=== PATIENT | female | born 1945 | race Caucasian/White ===

== ENCOUNTER 2023-02-15 08:10 | Observation (INO) ==
[~2023-02-15 08:10] MED LIST: Buffered Lidocaine 1% SYRIN 1 ml INTRADERM ONE; Lactated Ringers 1000 ml BAG 1,000 ML IV SCH; Ropivacaine 5 MG/ML 20 ML VIAL 0.5% (100 MG) ONE; Tranexamic Acid 1,000 MG/10 ML 1,000 MG in NS 0.9% 50 ML 50 ML IV SCH
[2023-02-15] MEDS ORDERED: ceFAZolin 2 GM in NS PREMIX 2 GM/100 ML BAG IVPB ONE (08:40)
[2023-02-15] MEDS ORDERED: Lidocaine 2% PF 5 ML VIAL ONE (09:48)
[2023-02-15] MEDS ORDERED: Phenylephrine IV 10 MG/ML 1 ml VIAL ONE (09:48)
[2023-02-15] MEDS ORDERED: Midazolam 2 mg/2 ml VIAL 1 mg/ml 2 ml VIAL (2 mg) ONE (09:56)
[2023-02-15] MEDS ORDERED: Naloxone 0.4 mg VIAL 0.4 mg/ml 1 ml VIAL IV PRN (10:07)
[2023-02-15] MEDS ORDERED: Ondansetron 4 mg VIAL 2 MG/ML 2 ml VIAL ONE (11:51)
[2023-02-15] MEDS ORDERED: Dexamethasone IV 4 MG/ML VIAL 1 ml VIAL ONE (11:51)
[2023-02-15] MEDS ORDERED: Lactulose 30 ml UDC PO PRN (12:23)
[2023-02-15] MEDS ORDERED: Ondansetron ODT 4 mg TAB 4 MG TAB PO PRN (12:23)
[2023-02-15] MEDS ORDERED: Morphine 2 MG/ML SYRINGE IV PRN (12:23)
[2023-02-15] MEDS ORDERED: Magnesium Hydroxide LIQ 30 ML UDC PO PRN (12:23)
[2023-02-15] MEDS ORDERED: Ondansetron 4 mg VIAL 2 MG/ML 2 ml VIAL IV PRN (12:23)
[2023-02-15] MEDS ORDERED: Acetaminophen IV 1 GM/100ML 1,000 MG/100 ML BAG IV ONE (12:58)
[2023-02-15] MEDS ORDERED: Lactated Ringers 1000 ml BAG 1,000 ML IV SCH (13:00)
[2023-02-15] MEDS ORDERED: HYDROmorphone 1 MG/1 ML SYRINGE ONE (13:39)
[2023-02-15] MEDS: HYDROmorphone 1 MG/1 ML SYRINGE IV PRN ×3 (13:42→14:44)
[2023-02-15] MEDS: ceFAZolin 1 GM ADVAN 1 GM in NS 0.9% 50 ML 50 ML IVPB SCH (19:29)
[2023-02-15] MEDS: Magnesium Hydroxide LIQ 30 ML UDC PO SCH (20:04)
[2023-02-16] MEDS: ceFAZolin 1 GM ADVAN 1 GM in NS 0.9% 50 ML 50 ML IVPB SCH ×2 (02:13→10:43)
[2023-02-16 05:54] LABS: Hematocrit 34 % (35-47); Hemoglobin 11.1 g/dL (12.0-16.0); Mean Platelet Volume 8.2 fL (7.4-10.4); Platelet Count 158 10^3/uL (150-450)
[2023-02-16 06:29] LABS: Calcium 8.1 mg/dL (8.6-10.3); Creatinine, Serum 0.53 mg/dL (0.51-0.95); Potassium 4.3 mmol/L (3.5-5.0); eGFR CKD-EPI 95.8 (>60)
[2023-02-16] MEDS: Vitamin THERAPEUTIC TAB PO SCH (07:42)
[2023-02-16] MEDS: Magnesium Hydroxide LIQ 30 ML UDC PO SCH ×2 (07:42→22:01)
[2023-02-17 06:06] LABS: Hematocrit 35 % (35-47); Hemoglobin 11.6 g/dL (12.0-16.0); Mean Platelet Volume 8.3 fL (7.4-10.4); Platelet Count 153 10^3/uL (150-450)
[2023-02-17] MEDS: Magnesium Hydroxide LIQ 30 ML UDC PO SCH ×2 (07:42→20:56)
[2023-02-17] MEDS: Vitamin THERAPEUTIC TAB PO SCH (09:40)
[2023-02-18 05:44] LABS: Hematocrit 33 % (35-47); Hemoglobin 11.4 g/dL (12.0-16.0); Platelet Count 158 10^3/uL (150-450)
[2023-02-18 06:13] LABS: Calcium 7.6 mg/dL (8.6-10.3); Creatinine, Serum 0.53 mg/dL (0.51-0.95); Potassium 4.5 mmol/L (3.5-5.0); eGFR CKD-EPI 95.8 (>60)
[2023-02-18] MEDS: Magnesium Hydroxide LIQ 30 ML UDC PO SCH (07:22)
[2023-02-18] MEDS: Vitamin THERAPEUTIC TAB PO SCH (08:40)
[2023-02-18 12:23] VITALS: BP 126/52
== END 2023-02-18 15:50 | disposition swing bed (61) ==
LOC: OR 08:10 → SSU 08:10
PROVIDERS: ADMIT Orthopaedic Surgery Adult Reconstructive Orthopaedic Surgery; ATTEND Orthopaedic Surgery Adult Reconstructive Orthopaedic Surgery